=== PATIENT | male | born 1955 | race Caucasian/White ===

== ENCOUNTER 2018-01-13 12:32 | Emergency (ER) | payer BC ==
[2018-01-13] MEDS ORDERED: Diphtheria,Pertussis(Acell),Tetanus Vaccine 0.5 ML SDV inactive ONE (12:45)
[2018-01-13] MEDS ORDERED: Lidocaine 2% with EPINEPHrine 1:100,000 20 ML MDV ONE (12:45)
[2018-01-13] MEDS ORDERED: Diphtheria,Pertussis(Acell),Tetanus Vaccine 0.5 ML SDV inactive IM ONE (12:45)
[2018-01-13 14:35] VITALS: BP 138/91
--- NOTE | 2018-01-13 14:50 | EDM.PDOC ---
ED HPI GENERAL MEDICAL PROBLEM - General Chief Complaint: Laceration Stated Complaint: LACERATION LEFT FINGER Time Seen by Provider: 01/13/18 12:45 Source of Information: Reports: Patient, Family History Limitations: Reports: No Limitations - History of Present Illness INITIAL COMMENTS - FREE TEXT/NARRATIVE: Patient is 62 year old man who was putting up a halfway and he cut the back of his left index finger with a sharp utility knife. It is a superficial wound. He needs a tetanus shot. No numbness or loss of function. 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 Pain Score (Numeric/FACES): 0 - Related Data Allergies Allergy/AdvReac Type Severity Reaction Status Date / Time No Known Allergies Allergy Verified 01/13/18 14:01 Home Meds: Home Meds atorvaSTATin Calcium [Atorvastatin Calcium] 40 mg PO DAILY 02/29/16 [History] Aspirin [Reuben Chewable] 81 mg PO DAILY 01/13/18 [History] Past Medical History - Past Health History Medical/Surgical History: Denies Medical/Surgical History Social & Family History - Family History Family Medical History: Noncontributory - Caffeine Use Caffeine Use: Reports: Coffee ED ROS GENERAL - Review of Systems Review Of Systems: See Below Constitutional: Reports: No Symptoms HEENT: Reports: No Symptoms Respiratory: Reports: No Symptoms Cardiovascular: Reports: No Symptoms Endocrine: Reports: No Symptoms GI/Abdominal: Reports: No Symptoms : Reports: No Symptoms Musculoskeletal: Reports: Other (Contractures on the right hand.) Skin: Reports: Wound (Laceration on the finger.) Neurological: Reports: No Symptoms Psychiatric: Reports: No Symptoms Hematologic/Lymphatic: Reports: No Symptoms Immunologic: Reports: No Symptoms ED EXAM, SKIN/RASH Exam: See Below Exam Limited By: No Limitations General Appearance: Alert, WD/WN, No Apparent Distress Eye Exam: Bilateral Eye: EOMI, Normal Fundi, Normal Inspection, PERRL Ears: Normal External Exam, Normal Canal, Hearing Grossly Normal, Normal TMs Nose: Normal Inspection, Normal Mucosa, No Blood Throat/Mouth: Normal Inspection, Normal Lips, Normal Teeth, Normal Gums, Normal Oropharynx, Normal Voice, No Airway Compromise Head: Atraumatic, Normocephalic Neck: Normal Inspection, Supple, Non-Tender, Full Range of Motion Respiratory/Chest: No Respiratory Distress, Lungs Clear, Normal Breath Sounds, No Accessory Muscle Use, Chest Non-Tender Cardiovascular: Normal Peripheral Pulses, Regular Rate, Rhythm, No Edema, No Gallop, No JVD, No Murmur, No Rub GI/Abdominal: Normal Bowel Sounds, Soft, Non-Tender, No Organomegaly, No Distention, No Abnormal Bruit, No Mass Back Exam: Normal Inspection, Full Range of Motion, NT Extremities: Other (2 cm laceration back of left index finger.) Neurological: Alert, Oriented, CN II-XII Intact, Normal Cognition, Normal Gait, Normal Reflexes, No Motor/Sensory Deficits Psychiatric: Normal Affect, Normal Mood Location, Skin: Upper Extremity, Left (2 cm superficial laceration on the back of the left index finger.) Lymphatic: No Adenopathy ED SKIN PROCEDURES - Laceration/Wound Repair Left Upper Distal Hand Lac/Wound length In cm: 2 Appearance: Superficial Distal NVT: Neuro & Vascular Intact, No Tendon Injury Anesthetic Type: Local Local Anesthesia - Lidocaine (Xylocaine): 2% with EPI Local Anesthetic Volume: 2cc Skin Prep: Chlorhexidine (Hibiciens), Providone-Iodine (Betadine), Saline, Sterile Drape Exploration/Debridement/Repair: Wound Explored, In a Bloodless Field, Explored to Base, No Foreign Material Found Closed with: Sutures Suture Size: 4-0 # of Sutures: 5 Suture Type: Nylon Course - Vital Signs Text/Narrative:: Patient had an uneventful ED course. His wound was repaired. Wound Care was discussed and given to him. We also gave him a handout on Dupuytren's Contracture for the right hand. He will come back in 8 days for suture removal. Last Recorded V/S: Last Vital Signs Temp 36.9 C 01/13/18 13:50 Pulse 62 01/13/18 13:50 Resp 16 01/13/18 13:50 BP 138/91 H 01/13/18 13:50 Pulse Ox 97 01/13/18 13:50 Departure - Departure Time of Disposition: 14:59 Disposition: Home, Self-Care 01 Condition: Good Clinical Impression: Laceration of finger Qualifiers: Encounter type: initial encounter Finger: index finger Damage to nail status: without damage Foreign body presence: without foreign body Laterality: left Qualified Code(s): S61.211A - Laceration without foreign body of left index finger without damage to nail, initial encounter - Discharge Information Instructions: Dupuytren Contracture, Laceration Care, Adult, VIS, Diphtheria, Tetanus, and Pertussis (DTaP) - [facility] (10/18/2006), Stitches, [place], or Adhesive Wound Closure Referrals: PCP,None [Primary Care Provider] - Forms: ED Department Discharge Additional Instructions: Follow up in the clinic in 7-10 days to have the sutures removed. Keep the wound clean and dry for the next three days, you may remove the dressing in 24 hours. Look for signs and symptoms of infection: drainage, redness, warm to the touch, if so return to the ER or the clinic.
== END 2018-01-13 14:30 | disposition home or self-care (01) ==
LOC: LB.ED 12:32
DX: S61.211A Laceration without foreign body of left index finger without damage to nail, initial encounter (principal); Z23 Encounter for immunization; Z79.82 Long term (current) use of aspirin; W26.0XXA Contact with knife, initial encounter
CPT/HCPCS: 12001; 90471; 90715; 99283-25

== ENCOUNTER 2021-02-24 10:52 | Day surgery (SDC) | payer MEDICARE, BC ==
[~2021-02-24 10:52] MED LIST: Metoclopramide 10 MG/2 ML SDV IV PRN; Sodium Chloride 0.9% 1,000 ML IV SCH
[2021-02-24] MEDS ORDERED: Sodium Chloride 0.9% 1,000 ML IV SCH (12:15)
[2021-02-24] MEDS ORDERED: Propofol 200 MG/20 ML SDV ONE (14:00)
[2021-02-24 14:25] VITALS: BP 116/86; PULSE 68
--- NOTE | 2021-02-24 15:07 | OR ---
DATE OF OPERATION: 02/24/2021 SURGEON: Alonso Rodriguez MD PREOPERATIVE DIAGNOSIS: Surveillance colonoscopy. POSTOPERATIVE DIAGNOSIS: Surveillance colonoscopy. PROCEDURE: Colonoscopy. ANESTHESIA: MAC. ESTIMATED BLOOD LOSS: None. COMPLICATIONS: None. INDICATION FOR THE PROCEDURE: The patient is a 65-year-old male with previous history of colorectal polyps, here today for surveillance colonoscopy. The last scope was 5 years ago, did have polyps on that one. Otherwise, denies any change in bowel habits since that time. DESCRIPTION OF PROCEDURE: Informed consent was obtained from the patient. The patient was taken to the operating room, placed on table in left lateral decubitus position. Monitored anesthesia care was administered. Digital rectal exam performed, was normal. Colonoscope then advanced through the anus, directed towards the cecum. Cecum was reached and identified by appendiceal orifice and ileocecal valve. Colonoscope was then slowly withdrawn. No polyps. No masses. No areas of ischemia or inflammation identified. He did have moderate diverticulosis in the descending and sigmoid colon. Rectum was also otherwise unremarkable. Colonoscope was then withdrawn. FINDINGS: Sigmoid and descending diverticulosis. Otherwise unremarkable colon. RECOMMENDATIONS: Due to personal history of polyps, would recommend repeat surveillance colonoscopy in 5 years. ELYSE/KODI /[id number]
== END 2021-02-24 15:00 | disposition home or self-care (01) ==
LOC: LB.SDS 10:52
PROVIDERS: ATTEND Surgery
DX: Z12.11 Encounter for screening for malignant neoplasm of colon (principal); Z86.010 Personal history of colon polyps; K57.30 Diverticulosis of large intestine without perforation or abscess without bleeding
CPT/HCPCS: G0105; J2704; J7030